=== PATIENT | female | born 1950 | race Caucasian/White ===

== ENCOUNTER → 2016-07-30 | Outpatient (CLI) | payer MEDICARE, OTHER | LOC: MW.CHIM 08:00 | PROVIDERS: ATTEND Internal Medicine | DX: I10 Essential (primary) hypertension (principal); E11.9 Type 2 diabetes mellitus without complications; I47.1 Supraventricular tachycardia | CPT/HCPCS: G0463 ==

== ENCOUNTER 2021-06-28 07:34 | Day surgery (SDC) | payer MEDICARE, OTHER ==
[~2021-06-28 07:34] MED LIST: Lactated Ringers 1,000 ML IV SCH
[2021-06-28] MEDS ORDERED: Propofol 200 MG/20 ML SDV ONE ×2 (09:08→09:30)
[2021-06-28] MEDS ORDERED: fentaNYL 100 MCG/2 ML SDV ONE (09:08)
[2021-06-28 10:39] VITALS: BP 156/64; PULSE 86
== END 2021-06-28 10:41 | disposition home or self-care (01) ==
LOC: MW.SDS 07:34
PROVIDERS: ATTEND Surgery
DX: Z12.11 Encounter for screening for malignant neoplasm of colon (principal); K62.1 Rectal polyp; K21.9 Gastro-esophageal reflux disease without esophagitis; I10 Essential (primary) hypertension; E11.9 Type 2 diabetes mellitus without complications; E87.6 Hypokalemia; G47.00 Insomnia, unspecified; E78.00 Pure hypercholesterolemia, unspecified; Z88.5 Allergy status to narcotic agent; Z88.8 Allergy status to other drugs, medicaments and biological substances; Z79.899 Other long term (current) drug therapy; Z79.82 Long term (current) use of aspirin; Z79.84 Long term (current) use of oral hypoglycemic drugs; Z98.890 Other specified postprocedural states; Z91.012 Allergy to eggs; Z91.011 Allergy to milk products
CPT/HCPCS: 45380; 82947; J2704; J3010; J7120; 00812; 88305; 99100

== ENCOUNTER 2023-06-26 10:10 | Observation (INO) | payer MEDICARE, OTHER ==
[2023-06-26] MEDS ORDERED: Sodium Chloride 0.9% 2.5 ML Syringe FLUSH PRN ×2 (11:07→14:24)
[2023-06-26] MEDS ORDERED: Sodium Chloride 0.9% 10 ML Syringe FLUSH PRN ×2 (11:07→14:24)
[2023-06-26] MEDS ORDERED: Ondansetron 4 MG/2 ML SDV IVPUSH ONE (11:07)
[2023-06-26] MEDS ORDERED: Sodium Chloride 0.9% 1,000 ML IV ONE (11:07)
[2023-06-26] MEDS ORDERED: Potassium Chloride 20 MEQ in Premix Bag 1 BAG IV ONE (11:09)
[2023-06-26 11:58] LABS: BASOPHILS ABSOLUTE AUTO 0.04 K/uL (0.00-0.20); BASOPHILS PERCENT AUTO 0.3 % (0.0-1.0); EOSINOPHILS ABSOLUTE AUTO 0.07 K/uL (0.00-0.45); EOSINOPHILS PERCENT AUTO 0.6 % (0.0-6.0); HEMATOCRIT 35.9 % (37.0-47.0); HEMOGLOBIN 12.9 g/dL (12.0-16.0); IMMATURE GRAN ABSOLUTE AUTO 0.04 K/uL (0.00-0.05); IMMATURE GRAN PERCENT AUTO 0.3 % (0.0-0.4); LYMPHOCYTES ABSOLUTE AUTO 4.79 K/uL (1.00-4.80); LYMPHOCYTES PERCENT AUTO 38.9 % (24.0-44.0); MEAN CORPUSCULAR HEMOGLOBIN 29.3 pg (28.0-32.0); MEAN CORPUSCULAR HGB CONC 35.9 g/dL (32.0-36.0); MEAN CORPUSCULAR VOLUME 81.4 fL (83.0-99.0); MEAN PLATELET VOLUME 10.6 fL (9.4-12.3); MONOCYTES PERCENT AUTO 5.7 % (0.0-8.0); NEUTROPHILS ABSOLUTE AUTO 6.68 K/uL (1.80-7.70); NEUTROPHILS PERCENT AUTO 54.2 % (41.0-71.0); PLATELET COUNT,PLT 309 K/uL (150-400); RED BLOOD CELL COUNT 4.41 M/uL (4.10-5.30); WHITE BLOOD CELL COUNT,WBC 12.32 K/uL (3.9-11.3)
[2023-06-26] MEDS: Potassium Chloride 10 MEQ in Premix Bag 1 BAG IV SCH ×4 (12:02→22:21)
[2023-06-26 12:22] LABS: ALBUMIN 3.6 g/dL (3.4-5.0); BILIRUBIN TOTAL 0.7 mg/dL (0.2-1.0); CALCIUM 7.4 mg/dL (8.5-10.1); CARBON DIOXIDE,CO2 27.9 mmol/L (21.0-32.0); EST CRCL DRUG DOSING (CG) 45.76 mL/min; PROTEIN TOTAL,TP 7.1 g/dL (6.4-8.2)
[2023-06-26 12:31] LABS: APPEARANCE,URINE CLEAR; BILIRUBIN,URINE NEGATIVE (NEGATIVE); COLOR,URINE YELLOW; GLUCOSE,URINE NEGATIVE (NEGATIVE); KETONES,URINE TRACE mg/dL (NEGATIVE); LEUKOCYTE ESTERASE,URINE TRACE (NEGATIVE); NITRITE,URINE NEGATIVE (NEGATIVE); OCCULT BLOOD,URINE TRACE-INTACT (NEGATIVE); PH,URINE 6.5 (5.0-8.0); PROTEIN,URINE 100 mg/dL (NEGATIVE); UROBILINOGEN,URINE 0.2 EU/dL (<2.0)
[2023-06-26 12:34] LABS: POTASSIUM,K 2.2 mmol/L (3.5-5.1)
[2023-06-26 12:39] LABS: BACTERIA,URINE FEW (NEGATIVE); EPITHELIAL CELLS,URINE FEW (NONE-FEW)
[2023-06-26] MEDS ORDERED: Magnesium Sulfate/Water 4 GM in Premix Bag 1 BAG IV ONE (14:21)
[2023-06-26] MEDS ORDERED: Ondansetron 4 MG/2 ML SDV IVPUSH PRN (14:24)
[2023-06-26] MEDS ORDERED: Glucagon,Human Recombinant 1 MG Vial IM PRN (16:10)
[2023-06-26] MEDS ORDERED: 50% Dextrose in Water 50 ML Syringe IVPUSH PRN (16:10)
[2023-06-26] MEDS ORDERED: cefTRIAXone 1 GM in Sodium Chloride 0.9% 50 ML IV SCH (16:15)
[2023-06-26] MEDS: Sodium Chloride 0.9% 1,000 ML IV SCH (17:01)
[2023-06-26] MEDS ORDERED: Potassium Chloride 10 MEQ Tab.ER PO ONE ×2 (17:30→20:55)
[2023-06-26] MEDS: Insulin Aspart 100 Units/ML 3 ML Pen SUBCUT SCH (17:44)
[2023-06-26] MEDS: Famotidine 20 MG/2 ML SDV IVPUSH SCH (17:58)
[2023-06-26 20:42] LABS: MAGNESIUM 1.5 mg/dL (1.8-2.4)
[2023-06-26] MEDS: Acetaminophen 325 MG Tab PO PRN (20:46)
[2023-06-26] MEDS ORDERED: Magnesium Sulfate/Water 2 GM in Premix Bag 1 BAG IV ONE (20:56)
[2023-06-26] MEDS: Metoprolol Tartrate 25 MG Tab PO SCH (20:59)
[2023-06-26] MEDS ORDERED: atorvaSTATin 20 MG Tab PO SCH (21:00)
[2023-06-26] MEDS ORDERED: amLODIPine 5 MG Tab PO SCH (21:00)
[2023-06-26] MEDS ORDERED: Losartan 50 MG Tab PO SCH (21:00)
[2023-06-26] MEDS: Fluticasone NASAL Spray 16 GM Bottle NASBOTH SCH (21:01)
[2023-06-27] MEDS: Sodium Chloride 0.9% 1,000 ML IV SCH (01:41)
[2023-06-27] MEDS: Acetaminophen 325 MG Tab PO PRN (04:38)
[2023-06-27 06:03] LABS: BASOPHILS ABSOLUTE AUTO 0.06 K/uL (0.00-0.20); BASOPHILS PERCENT AUTO 0.6 % (0.0-1.0); EOSINOPHILS ABSOLUTE AUTO 0.15 K/uL (0.00-0.45); EOSINOPHILS PERCENT AUTO 1.5 % (0.0-6.0); HEMATOCRIT 33.4 % (37.0-47.0); HEMOGLOBIN 11.5 g/dL (12.0-16.0); IMMATURE GRAN ABSOLUTE AUTO 0.03 K/uL (0.00-0.05); IMMATURE GRAN PERCENT AUTO 0.3 % (0.0-0.4); LYMPHOCYTES ABSOLUTE AUTO 3.79 K/uL (1.00-4.80); LYMPHOCYTES PERCENT AUTO 38.8 % (24.0-44.0); MEAN CORPUSCULAR HEMOGLOBIN 28.3 pg (28.0-32.0); MEAN CORPUSCULAR HGB CONC 34.4 g/dL (32.0-36.0); MEAN CORPUSCULAR VOLUME 82.3 fL (83.0-99.0); MEAN PLATELET VOLUME 10.9 fL (9.4-12.3); MONOCYTES ABSOLUTE AUTO 0.49 K/uL (0.00-0.80); NEUTROPHILS ABSOLUTE AUTO 5.24 K/uL (1.80-7.70); NEUTROPHILS PERCENT AUTO 53.8 % (41.0-71.0); PLATELET COUNT,PLT 289 K/uL (150-400); RED BLOOD CELL COUNT 4.06 M/uL (4.10-5.30); WHITE BLOOD CELL COUNT,WBC 9.76 K/uL (3.9-11.3)
[2023-06-27 06:31] LABS: CARBON DIOXIDE,CO2 27.8 mmol/L (21.0-32.0); CREATININE 0.9 mg/dL (0.6-1.0); EST CRCL DRUG DOSING (CG) 50.84 mL/min; MAGNESIUM 1.6 mg/dL (1.8-2.4)
[2023-06-27] MEDS: Insulin Aspart 100 Units/ML 3 ML Pen SUBCUT SCH ×2 (06:38→13:51)
[2023-06-27] MEDS ORDERED: Potassium Chloride 20 MEQ Tab.ER PO ONE ×2 (07:46→13:17)
[2023-06-27] MEDS ORDERED: Magnesium Sulfate/Water 2 GM in Premix Bag 1 BAG IV ONE ×2 (07:46→09:30)
[2023-06-27] MEDS: Metoprolol Tartrate 25 MG Tab PO SCH (08:47)
[2023-06-27] MEDS: Famotidine 20 MG/2 ML SDV IVPUSH SCH (08:48)
[2023-06-27] MEDS: Fluticasone NASAL Spray 16 GM Bottle NASBOTH SCH (08:55)
[2023-06-27] MEDS ORDERED: Aspirin 81 MG Tab.EC PO SCH (09:00)
[2023-06-27 11:31] LABS: MAGNESIUM 2.1 mg/dL (1.8-2.4); POTASSIUM,K 2.9 mmol/L (3.5-5.1)
[2023-06-27 14:04] VITALS: BP 138/67; PULSE 79
== END 2023-06-27 15:45 | disposition home or self-care (01) ==
LOC: MW.ED 10:10 → MW.MS 14:16
PROVIDERS: ADMIT Family Medicine; ATTEND Family Medicine
DX: E87.6 Hypokalemia (principal); E83.42 Hypomagnesemia; R11.2 Nausea with vomiting, unspecified; E11.9 Type 2 diabetes mellitus without complications; R53.1 Weakness; I47.19 Other supraventricular tachycardia; E78.5 Hyperlipidemia, unspecified; I10 Essential (primary) hypertension; Z79.899 Other long term (current) drug therapy; Z91.011 Allergy to milk products; Z88.5 Allergy status to narcotic agent; Z91.012 Allergy to eggs; Z88.1 Allergy status to other antibiotic agents; Z88.2 Allergy status to sulfonamides
CPT/HCPCS: 36415; 80048; 80053; 81001; 82040; 82947; 83690; 83735; 84132; 85025; 87086; 93005; 96365; 96366; 96375; 99285; A9270; J0696; J2405; J3475; J3480; J3490; J7030; U0002; 96367; 96368; 96376; G0378